=== PATIENT | male | born 1955 | race Caucasian/White ===

== ENCOUNTER 2016-11-30 10:32 | Day surgery (SDC) | payer MEDICARE ==
[~2016-11-30] VITALS: Ht 170.2 cm; Wt 67.2 kg
[~2016-11-30 10:32] MED LIST: HEPARIN 1,000 UNITS/ML, 10ML ONE
[2016-11-30] MEDS ORDERED: SODIUM CHLORIDE 0.9% 1,000 ML IV SCH (11:12)
[2016-11-30] MEDS ORDERED: CARV12.52 PO (11:22)
[2016-11-30] MEDS ORDERED: CHOL100011 PO (11:22)
[2016-11-30] MEDS ORDERED: PRAV40TA2 PO (11:22)
[2016-11-30] MEDS ORDERED: AMLO10TA2 PO (11:22)
[2016-11-30] MEDS ORDERED: CALC-112 PO (11:22)
[2016-11-30] MEDS ORDERED: TORS20TA2 PO (11:22)
[2016-11-30] MEDS ORDERED: GLIP5TAB10 PO (11:22)
[2016-11-30] MEDS ORDERED: ISON300T4 PO (11:22)
[2016-11-30] MEDS ORDERED: ASPI81TA50 PO (11:22)
[2016-11-30] MEDS ORDERED: NIAC500T85 PO (11:22)
[2016-11-30] MEDS ORDERED: CALC667S PO (11:22)
[2016-11-30] MEDS ORDERED: PLEASE ENTER ALLERGIES MC SCH ×2 (11:30)
[2016-11-30] MEDS ORDERED: PLEASE ENTER HEIGHT AND WEIGHT MC SCH (11:30)
[2016-11-30 11:35] VITALS: BP 158/79
[2016-11-30 11:42] VITALS: BP 158/79
[2016-11-30] MEDS ORDERED: LIDOCAINE/PF 1%, 30ML ONE (13:33)
[2016-11-30] MEDS ORDERED: CEFAZOLIN 1,000 MG ONE (13:41)
[2016-11-30] MEDS ORDERED: LIDOCAINE/PF 1%, 30ML INFIL ONE (13:45)
[2016-11-30] MEDS ORDERED: LABETALOL 5MG/ML, 20ML IV PRN (14:00)
[2016-11-30] MEDS ORDERED: OXYcodone 5 MG/5 ML ORAL.SOL UDC PO PRN (14:00)
[2016-11-30] MEDS ORDERED: ONDANSETRON 2MG/ML, 2ML IVPush PRN (14:00)
[2016-11-30] MEDS ORDERED: hydrALAzine 20 MG/ML, 1ML IV PRN (14:00)
[2016-11-30] MEDS ORDERED: HYDROmorphone 1 MG/ML, 1ML IV PRN (14:00)
[2016-11-30] MEDS ORDERED: FENTANYL PF 100 MCG/2ML IV PRN (14:00)
== END 2016-11-30 16:30 | disposition home or self-care (01) ==
LOC: OUT 10:32 → EDSEX 10:32 → OUT 16:30
PROVIDERS: ATTEND Surgery Vascular Surgery
DX: T82.590A Other mechanical complication of surgically created arteriovenous fistula, initial encounter (principal); E11.22 Type 2 diabetes mellitus with diabetic chronic kidney disease; N18.6 End stage renal disease; Y83.2 Surgical operation with anastomosis, bypass or graft as the cause of abnormal reaction of the patient, or of later complication, without mention of misadventure at the time of the procedure
CPT/HCPCS: 36415; 37607; 80047; 85610; 93005; J3490; J7030; J0690; J1644